=== PATIENT | female | born 1995 | race African-American/Black ===

== ENCOUNTER 2016-11-09 02:28 | Emergency (ER) | payer BC ==
[~2016-11-09] VITALS: Ht 170.2 cm; Wt 61.2 kg
--- NOTE | ~2016-11-09 | US67 ---
[facility] A Service of [facility] & [facility] RADIOLOGY TEXT RESULTS PATIENT: JOSE M QUIROZ LOCATION: [facility] : [birth year] UNIT #: [id number] AGE: [address]: Leslie Hull MD SEX: F ORDER DR: [id number] [facility] [address] [place], [place] [address] [id number] MR#: [id number] #: [id number] NAME: JOSE M QUIROZ : 1995 SEX: F STUDY DATE/TIME: 11/09/2016 7:15 UNIT: [facility] ROOM: STUDY DESCRIPTION: Gallbladder Attending Physician: Leslie Hull M.D. Ordering Physician: Hilario Bear Aprn Primary Care Physician: Primary Care Physician No MEDICAL IMAGING REPORT This report is preliminary unless electronic signature is present EXAM Gallbladder ultrasound, 11/09/2016 HISTORY pain. Sharp right upper quadrant pain and nausea times 5 hours. FINDINGS Real-time ultrasonography right quadrant performed. Prior studies for comparison. The inferior vena cava is patent. The visualized portions of pancreas are unremarkable. The liver measures approximately 13.0 cm in craniocaudal extent. Normal in contour and echotexture. The portal vein is patent with normal direction of flow. The gallbladder is normal in volume. Layering sludge in the gallbladder. No gallbladder wall thickening or pericholecystic fluid. No intra or extrahepatic biliary ductal dilatation. The common bile duct measures 1.0-2.0 mm in diameter. Hepatic veins appear patent. The right kidney measures 9.7 cm in greatest length. No hydronephrosis or nephrolithiasis. No cystic or solid mass lesion. No perinephric fluid collection. IMPRESSION 1. Pancreas, liver, right kidney appear normal. 2. Layering echogenic sludge in otherwise unremarkable gallbladder. No evidence of gallbladder inflammation. No biliary ductal dilatation. Dictated by... Martinez Dawkins M.D. THIS IS AN ELECTRONICALLY VERIFIED REPORT Martinez Dawkins M.D. at 11/13/2016 8:01 AM TIAGO/lisset TD: 11/09/2016 08:56 JOB #: [id number] [facility]. [facility] A Service of [facility] & [facility] RADIOLOGY TEXT RESULTS PATIENT: JOSE M QUIROZ LOCATION: [facility] [place] #: [id number] : [birth year] UNIT #: [id number] AGE: [address]: Leslie Hull MD SEX: F ORDER DR: MEDICAL IMAGING REPORT Page 1 of 1 COPY
[2016-11-09 05:23] LABS: BASOPHIL% 0.2 % (0-2.5); EOSINOPHIL% 0.2 % (0.0-7.0); HEMATOCRIT 38.9 % (35.0-45.0); HEMOGLOBIN 12.9 gm/dL (12.0-16.0); LYMPHOCYTE# 1.2 X10e3 (1.0-3.5); LYMPHOCYTE% 17.2 % (17.0-45.0); MEAN CELL VOLUME 89.5 FL (83-96); MEAN CORPUSCULAR HEMOGLOBIN 29.7 PG (28-34); MEAN CORPUSCULAR HGB CONC 33.2 g/dL (30-36); MEAN PLATELET VOLUME 7.6 FL (6.5-11.5); MONOCYTE# 0.4 X10e3 (0-1.0); MONOCYTE% 6.2 % (3.0-12.0); NEUTROPHIL# 5.5 X10e3 (1.5-7.1); NEUTROPHIL% 76.2 % (40-75); PLATELET COUNT 187 X10e3 (140-420); RED BLOOD COUNT 4.34 X10e (3.90-5.30); RED CELL DISTRIBUTION WIDTH 13.6 % (11.0-15.5); WHITE BLOOD COUNT 7.2 X10e3 (4.0-10.5)
[2016-11-09 05:29] LABS: DIFF IND NO
[2016-11-09 05:51] LABS: ALBUMIN SERUM 3.9 g/dL (3.5-5.0); BILIRUBIN, DIRECT 0.1 mg/dL (0.0-0.2); BILIRUBIN,INDIRECT 0.5 mg/dL (0.0-0.9); BILIRUBIN,TOTAL 0.6 mg/dL (0.2-2.0); BUN/CREATININE RATIO 16.66; CALCIUM SERUM 9.1 mg/dL (8.4-10.2); CREATININE SERUM 0.9 mg/dL (0.6-1.4); GLOM FILT RATE Estimated 106.8 mL/min (>60); PROTEIN TOTAL SERUM 6.9 g/dL (6.0-8.3)
== END 2016-11-09 08:19 | disposition home or self-care (01) ==
LOC: CED 02:28
PROVIDERS: Nurse Practitioner Family
DX: K80.50 Calculus of bile duct without cholangitis or cholecystitis without obstruction (principal); Z98.890 Other specified postprocedural states
CPT/HCPCS: 36415; 76705; 80048; 80076; 82150; 83690; 84703; 85025; 99284